=== PATIENT | male | born 1960 | race African-American/Black ===

== ENCOUNTER 2021-03-01 05:39 | Day surgery (SDC) | payer OTHER ==
[~2021-03-01] VITALS: Ht 200.7 cm; Wt 154.2 kg
[~2021-03-01 05:39] MED LIST: ALPHAGAN 0.2%5 ML EACH EYE; HUMALOG 30100 UNITS/ SC; HUMULIN 70100 UNIT/1 SC; HYDRALAZINE HCL10 MG PO; LANTUS INS100 UNITS/ SC; METOPROLOL TART50 MG PO; NORVASC10 MG PO; NOVOLIN 70/30 110 ML SC; OMEPRAZOLE40 MG PO; PRED FORTE5 ML EACH EYE; PREDNISOLONE 110 ML EACH EYE; RENAGEL800 MG PO; RENVELA800 MG PO; TRUSOPT 2 % OPT10 ML EACH EYE
[2021-03-01 06:51] LABS: ANION GAP 19.2 mmol/L (8-16); CALCIUM 9.3 mg/dL (8.5-10.1); CARBON DIOXIDE 21.2 mmol/L (21.0-32.0); CREATININE - SERUM 16.1 mg/dL (0.6-1.3); POTASSIUM - SERUM 5.4 mmol/L (3.5-5.1)
[2021-03-01 06:56] LABS: APTT 34.2 SECONDS (22.8-39.4); INR 1.14 (0.85-1.17); PROTIME 13.5 SECONDS (11.6-15.0)
[2021-03-01 07:02] VITALS: Ht 200.7 cm; Wt 154.2 kg
[2021-03-01 07:09] LABS: BASOPHILS 0.1 % (0-2); EOSINOPHILS 1.6 % (0-7); HEMATOCRIT 38.8 % (42.0-54.0); HEMOGLOBIN 11.8 g/dL (13.5-17.5); IMMATURE GRANULOCYTES 0.2 % (0-5); LYMPHOCYTE ABS# 1.41 10x3/uL (1.32-3.57); LYMPHOCYTES 13.9 % (15-50); MCH 28.1 pg (26.0-34.0); MCHC 30.4 g/dL (31.0-37.0); MCV 92.4 fL (80.0-100.0); MEAN PLATELET VOLUME 11.3 fL (7.4-10.4); NEUTROPHIL ABS# 8.06 10x3/uL (1.78-5.38); NEUTROPHILS 79.2 % (40-80); PLATELET COUNT 228 10x3/uL (130-400); RDW 16.4 % (11.5-14.5); WBC 10.2 10x3/uL (4.8-10.8)
[2021-03-01] MEDS ORDERED: METOPROLOL TART50 MG PO (07:11)
[2021-03-01] MEDS ORDERED: HUMULIN 70100 UNIT/1 SC (07:14)
--- NOTE | 2021-03-01 12:50 | NUR ---
DISCHARGE INSTRUCTIONS REVIEWED WITH IZYZ, COPY PROVIDED ALONG WITH H&P AND OPERATIVE REPORT. GUARD VOICED UNDERSTANDING.
--- NOTE | 2021-03-01 13:32 | NUR ---
IV DC'D WITH CATH TIP INTACT BY DYLLAN CHOW. DR CORREIA NOTIFIED OF SCORE OF 12 ON DC CRITERIA AND PT HAVING MINIMAL VOMITING AFTER ZOFRAN 8 MG AND PHENERGAN 12.5 MG. OK TO DISCHARGE PT PER DR CORREIA. PT DISCHARGED VIA OWN W/C, ACCOMPANIED BY GUARD AND DYLLAN CHOW, TO ADC VEHICLE. ALL BELONGINGS WITH GUARD.
--- NOTE | 2021-03-02 14:30 | HP ---
PATIENT: JAE ZUNIGA MEDICAL RECORD: [id number] ACCOUNT: [id number] LOCATION:[facility] : 62 ADMISSION DATE: 03/01/21 PCP: No PCP HISTORY AND PHYSICAL EXAMINATION CHIEF COMPLAINT: Cold left hand. HISTORY OF PRESENT ILLNESS: The patient has a steal of the left upper extremity. He has a nicely functioning brachiocephalic fistula. It was placed in [place]. He is here for banding. I have told him that we will try banding first. He may need to have a DRIL procedure if the banding does not work. The patient has numerous medical problems. MEDICATIONS: Reviewed. ALLERGIES: No known drug allergies. SOCIAL HISTORY: Nonsmoker. PAST MEDICAL AND SURGICAL HISTORY: Coronary artery disease, end-stage renal disease, hypertension, coronary stents, insulin-dependent diabetes mellitus, right BKA, fistula placement, and cholecystectomy. PHYSICAL EXAMINATION: GENERAL: The patient does not appear acutely ill. He does appear chronically ill. VITAL SIGNS: Reviewed. EARS: External ears appear normal. EYES: Extraocular movements are intact. NECK: Trachea is midline. CHEST: No intercostal retractions. PULMONARY: Nonlabored. No stridor. IMPRESSION: Left upper extremity steal syndrome. PLAN: Left upper extremity fistula banding. The risks, possible complications, and alternatives of procedure were explained to the patient. He elects to proceed. TRANSINT:[id number] Voice Confirmation ID: [id number] DOCUMENT ID: [id number] JOSÉ MIGUEL CORREIA MD at 1430 CC: [id number] DICTATION DATE: 03/01/21 0859 ANODISER: 03/01/21 1001 [facility] 03/01/21 [id number] [place] [address]
--- NOTE | 2021-03-02 14:30 | OP ---
PATIENT NAME: JAE ZUNIGA MEDICAL RECORD: [id number] :62 LOCATION:D.OPS ADMISSION DATE: SURGEON: MOOKIE CORREIA MD DATE OF OPERATION: 03/01/2021 PREOPERATIVE DIAGNOSIS: Left upper extremity steal syndrome. POSTOPERATIVE DIAGNOSES: Left upper extremity steal syndrome with one large side branch off of the cephalic vein. PROCEDURE: 1. Left upper extremity fistula banding with a PTFE graft. 2. Open ligation of a single side branch off of the cephalic vein. SURGEON: Mookie Correia MD CERAMIC SPRAYER: None. BLOOD LOSS: Minimal. ANESTHESIA: General. COMPLICATIONS: None. The risks, possible complications and alternatives of the procedure were explained to the patient. He elects to proceed. OPERATIVE COURSE: The patient was conveyed to the operating room electively on 03/01/2021. General anesthesia was induced by the anesthesia staff. The left upper extremity was abducted at 90 degrees to the patient's trunk. The left upper extremity was sterilely prepped and draped. Utilizing the color Doppler ultrasound, I visualized the arteriovenous fistula and there are 2 large pseudoaneurysms within the fistula, which do not need to be repaired at this time. There was a significant side branch just proximal to the olecranon and this was marked. I then incised the skin overlying the side branch. I dissected down to the venous side branch and it was ligated with a 2-0 silk. The incision was closed with interrupted 3-0 Vicryl for the subcutaneous tissues and a running 3-0 Vicryl for the skin. I then incised over the arteriovenous anastomosis. I identified a large cephalic vein. I cut a strip of PTFE graft and I then encircled the cephalic vein just distal to the anastomosis. This was pleated and the banding was completed with a 4-0 Prolene to finish the pleat. Doppler examination of the wrist revealed Doppler flow in the radial artery as well as the ulnar artery. I could in fact feel a radial pulse. I then tightened down on the band even further and this really did improve flow into the hand, but it almost caused the fistula not to work. So, I did not place another suture to tighten down the band. The skin was then closed with interrupted 3-0 Vicryl for the subdermis as well as a running intracuticular 3-0 Vicryl for the skin. Sterile dressings were applied. OPERATIVE REPORT [id number] JAE ZUNIGA The patient was then extubated and conveyed to post-anesthesia care unit where he was in stable condition. He will be dismissed back to the detention on tramadol. In the recovery room, he states that his left hand was already feeling better. He had a 96% O2 saturation on a finger of the left hand. I think this banding is successful. TRANSINT:[id number] Voice Confirmation ID: [id number] DOCUMENT ID: [id number] MOOKIE CORREIA MD at 1430 CC: BARBIE HYDE MD [id number] DICTATION DATE: 03/01/21 1148 [employer]: 03/01/21 1244 [facility] 03/01/21 [id number] [place] [address]
== END 2021-03-01 13:32 ==
LOC: D.OPS 05:39
PROVIDERS: Anesthesiology; ATTEND Surgery
DX: N18.6 End stage renal disease (principal); Z99.2 Dependence on renal dialysis; T82.898A Other specified complication of vascular prosthetic devices, implants and grafts, initial encounter; I25.10 Atherosclerotic heart disease of native coronary artery without angina pectoris; I10 Essential (primary) hypertension; Z95.5 Presence of coronary angioplasty implant and graft; E11.9 Type 2 diabetes mellitus without complications; Z79.4 Long term (current) use of insulin